=== PATIENT | male | born 1965 | race Caucasian/White ===

== ENCOUNTER 2024-02-27 12:19 | Emergency (ER) | payer OTHER ==
[2024-02-27 12:43] VITALS: RESP 16; TEMP 97.3
[2024-02-27] MEDS ORDERED: Norflex 60 MG/2 ML IM ONE (13:18)
[2024-02-27] MEDS ORDERED: NORCO 5/325 MG PO ONE (13:18)
[2024-02-27] MEDS ORDERED: Norflex 60 MG/2 ML ONE (13:28)
[2024-02-27] MEDS ORDERED: NORCO 5/325 MG ONE (13:29)
--- NOTE | 2024-02-27 14:55 | XRAY ---
Indication: Back/rib pain following fall. Multiple contiguous axial images obtained through the chest without contrast. Comparison: None Lungs inflated and clear with incidental tiny right costophrenic angle calcified granuloma. Heart not enlarged. Aorta is normal in course and caliber. Tiny right hilar calcified node. No pathologic mediastinal lymphadenopathy. Small hiatal hernia. Bony thorax intact. Limited upper abdomen demonstrates a few hepatic cysts, largest 1.4 cm. Impression: Incidental small hiatal hernia, hepatic cysts, and old granulomatous disease. Remaining CT chest without contrast exam is normal.
[2024-02-27 15:06] VITALS: PULSE 78; O2SAT 96
--- NOTE | 2024-02-27 15:27 | ERPHSYRPT ---
- History of Present Illness Time Seen by Provider: 02/27/24 12:23 Source: patient, family Exam Limitations: no limitations Patient Subjective Stated Complaint: Pt reports he was at work walking when he fell and landed on his back. Reports he hit his head as well but was wearing a hard hat and denies any pain in head. States pain is throughout back, palpation does not intensify pain per pt. Triage Nursing Assessment: Pt alert and oriented x3. Respirations easy/nonlabored. Skin w/p/d. Ambulated to ED cot with steady but slouched gait. No obvious deformities/contusions. Physician History: 58-year-old male presented in the ER after he slipped on ice, fell backward on his mid to upper back prior to arrival. Did hit his head but reports he had helmet/hard hat on and denies any headache and neck pain. Pain is more all over chest, upper back and exacerbated with movements of the shoulder and minimal exacerbation with palpation in the anterior chest wall. Patient reports it hurts with twisting movements, taking a deep breath. No injury anywhere else. Allergies/Adverse Reactions: No Known Drug Allergies Allergy (Unverified 02/27/24 12:34) Home Medications: Fexofenadine HCl [Candice Allergy] 1 tab PO DAILY 02/27/24 [History] Hx Tetanus, Diphtheria Vaccination/Date Given: Yes Hx Influenza Vaccination/Date Given: No Travel Risk - International Travel Have you traveled outside of the country in past 3 weeks: No - Emerging Infectious Disease Are you exhibiting symptoms associated with any current EIDs: No - Review of Systems Constitutional: No Symptoms Eyes: No Symptoms Ears, Nose, & Throat: No Symptoms Respiratory: No Symptoms Cardiac: Chest Pain Abdominal/Gastrointestinal: No Symptoms Genitourinary Symptoms: No Symptoms Musculoskeletal: Back Pain, Fall Skin: No Symptoms Neurological: No Symptoms Psychological: No Symptoms Endocrine: No Symptoms - Past Medical History Pertinent Past Medical History: No - Past Surgical History Past Surgical History: Yes Gastrointestinal: Hernia Repair Musculoskeletal: Other Other Surgical History: right hand and right thumb - Social History Smoking Status: Former smoker Exposure to second hand smoke: Yes Drug Use: none - Social Determinants of Health Will the patient participate in the screening: Declined to provide - Nursing Vital Signs Nursing Vital Signs: Initial Vital Signs Temperature 97.3 F 02/27/24 12:29 Pulse Rate 91 H 02/27/24 12:29 Respiratory Rate 16 02/27/24 12:29 Blood Pressure 159/100 02/27/24 12:29 O2 Sat by Pulse Oximetry 99 02/27/24 12:29 Pain Scale Pain Intensity [Back] 8 Pain Intensity 7 - Alberto Coma Score Best Eye Response (Rush): (4) open spontaneously Best Verbal Response (Rush): (5) oriented Best Motor Response (Alberto): (6) obeys commands Rush Total: 15 - Physical Exam General Appearance: no apparent distress, alert Head Injury: no evidence of injury Eye Exam: PERRL/EOMI, eyes nml inspection ENT Exam: airway nml, nml ext.inspection, No evidence of ENT injury, No dental injury Neck Exam: supple, trachea midline, full range of motion, normal alignment, normal inspection, focal neuro deficit, No paraspinous muscle tender Respiratory/Chest Exam: chest tenderness (Anterior chest wall tenderness with no crepitus. Mild tenderness in bilateral scapular area), normal breath sounds, No respiratory distress Cardiovascular Exam: normal heart sounds, regular rate/rhythm Gastrointestinal Exam: soft, normal bowel sounds, No tenderness Back Exam: normal inspection, muscle spasm, point tenderness (Thoracic paraspinal area) Extremity Exam: normal inspection, normal range of motion, capillary refill <3 sec Neurologic Exam: alert, oriented x 3, cooperative, garnisher II-XII nml as tested, normal mood/affect, nml cerebellar function, nml station & gait, sensation nml, No motor deficits Skin Exam: normal color SpO2 Interpretation: normal SpO2: 96 O2 Delivery: Room Air Ordered Tests: Active Orders 24 hr Category Date Time Status CHEST WITHOUT CONTRAST [CT] Stat Exams 02/27/24 13:17 Completed Medication Summary Discontinued Medications Generic Name Dose Route Start Last Admin Trade Name Freq PRN Reason Stop Dose Admin Hydrocodone Bitart/Acetaminophen 2 tab 02/27/24 13:18 Hydrocodone/Apap 5/325 1 Tab Tablet PO 02/27/24 13:19 STAT ONE Hydrocodone Bitart/Acetaminophen Confirm 02/27/24 13:29 Hydrocodone/Apap 5/325 1 Tab Tablet Administered 02/27/24 13:30 Dose 2 tab .ROUTE .STK-MED ONE Orphenadrine Citrate 60 mg 02/27/24 13:18 Orphenadrine Citrate 60 Mg/2 Ml Vial IM 02/27/24 13:19 STAT ONE Orphenadrine Citrate Confirm 02/27/24 13:28 Orphenadrine Citrate 60 Mg/2 Ml Vial Administered 02/27/24 13:29 Dose 60 mg .ROUTE .STK-MED ONE - Progress Progress: unchanged Progress Note: 02/27/24 15:32 58-year-old is evaluated in ER for ground-level fall after he slipped on ice and fell backward on his back. Did hit his head with a hard helmet/head on with no LOC and no headache. Patient is recommended CT head and cervical spine along with chest but he declined to have CT head and cervical spine and does understand the risk of head and neck injury which would go undiagnosed and can have permanent disability/morbidities and could be even life-threatening. CT chest is negative for any acute trauma findings in the bony thorax and lungs. Patient is offered pain medication and muscle relaxant which she declined because of work-related issues. I believe patient has upper back muscle strain and recommended muscle relaxant along with Tylenol but patient does not want anything and would like to go to his employee health for further evaluation. Discussed signs symptoms of worsening needing return to ER which he seems understanding. Stable for discharge. Counseled pt/family regarding: diagnosis, need for follow-up, rad results Medical Desision Making - Independent Historian Additional History obtained from: Spouse - Diagnostic Testing Diagnostic test were ordered, analyzed, and reviewed by me: Yes Radiological Interpretation: Reviewed by me - Risk of complications The pt has a mod risk of morbidity or mortality based on: Need for prescription drug management - Departure Departure Disposition: Home Clinical Impression: Muscle strain of upper back, Fall Condition: Stable Critical Care Time: No Referrals: CAROLE CASTRO NP [Primary Care Provider] - Follow up with PCP 1 day Instructions: Back Muscle Strain Additional Instructions: Take Tylenol as needed. Follow-up with primary care/your employee health for reevaluation. Return to ER for any worsening.
[2024-02-27 15:38] VITALS: BP 144/92
== END 2024-02-27 15:42 | disposition home or self-care (01) ==
LOC: ED 12:19
DX: S29.012A Strain of muscle and tendon of back wall of thorax, initial encounter (principal); W00.0XXA Fall on same level due to ice and snow, initial encounter; Y92.69 Other specified industrial and construction area as the place of occurrence of the external cause; Y99.0 Civilian activity done for income or pay; R07.9 Chest pain, unspecified; Z79.899 Other long term (current) drug therapy
CPT/HCPCS: 71250; 99284; J2360; A9270-GY